=== PATIENT | male | born 1950 | race Caucasian/White ===

== ENCOUNTER → 2019-07-13 | Outpatient (CLI) | payer OTHER ==
[2019-07-13 16:46] LABS: Hematocrit 35.3 % (37.0-53.0); Hemoglobin 11.7 g/dL (13.5-17.5)
[2019-07-13 17:01] LABS: Albumin, Blood 3.4 g/dL (3.4-5.0); Anion Gap 8 mmol/L (6-16); Blood Urea Nitrogen 60 mg/dL (8-24); Bun/Creatinine Ratio 23.1 (12.0-20.0); CO2, Blood 28 mmol/L (21-32); Chloride, Blood 104 mmol/L (98-108); Glomerular Filtration Rate 24 (60-); Glucose, Blood 109 mg/dL (70-99); Phosphorus, Blood 3.8 mg/dL (2.5-4.9); Potassium, Blood 4.4 mmol/L (3.5-5.5); Sodium, Blood 140 mmol/L (136-145)
== END ==
LOC: LAB EV 16:34
PROVIDERS: Internal Medicine
DX: E11.22 Type 2 diabetes mellitus with diabetic chronic kidney disease (principal); N18.4 Chronic kidney disease, stage 4 (severe)
CPT/HCPCS: 36415; 80069; 83036; 83970; 85014; 85018

== ENCOUNTER → 2019-09-30 | Outpatient (CLI) | payer OTHER | END | disposition home or self-care (01) | LOC: LAB EV 13:45 → LAB SHORT 13:45 | DX: N39.0 Urinary tract infection, site not specified (principal) | CPT/HCPCS: 87086 ==

== ENCOUNTER → 2019-11-08 | Outpatient (CLI) | payer OTHER | LOC: PLD 15:35 → LAB SHORT 15:35 | DX: L70.0 Acne vulgaris (principal) | CPT/HCPCS: 88305 ==

== ENCOUNTER → 2019-11-22 | Outpatient (CLI) | payer OTHER | LOC: LAB EV 12:15 → LAB SHORT 12:15 | DX: R30.0 Dysuria (principal) | CPT/HCPCS: 87086 ==

== ENCOUNTER → 2020-06-21 | Outpatient (CLI) | payer OTHER ==
[2020-06-21 13:50] LABS: Hematocrit 35.4 % (37.0-53.0); Hemoglobin 11.7 g/dL (13.5-17.5)
[2020-06-21 14:04] LABS: Albumin, Blood 3.4 g/dL (3.4-5.0); Anion Gap 7 mmol/L (6-16); Blood Urea Nitrogen 36 mg/dL (8-24); Bun/Creatinine Ratio 18.1 (12.0-20.0); CO2, Blood 29 mmol/L (21-32); Calcium, Blood 9.6 mg/dL (8.5-10.1); Chloride, Blood 105 mmol/L (98-108); Creatinine, Blood 1.99 mg/dL (0.60-1.20); Glomerular Filtration Rate 33 (60-); Glucose, Blood 124 mg/dL (70-99); Phosphorus, Blood 3.6 mg/dL (2.5-4.9); Potassium, Blood 4.4 mmol/L (3.5-5.5); Sodium, Blood 141 mmol/L (136-145)
[2020-06-21 14:13] LABS: Bun/Creatinine Ratio 18.9 (12.0-20.0); Calcium, Blood 9.5 mg/dL (8.5-10.1); Creatinine, Blood 1.96 mg/dL (0.60-1.20); Potassium, Blood 4.4 mmol/L (3.5-5.5); Thyroid Stimulating Hormone 1.444 uIU/mL (0.360-4.800)
== END | disposition home or self-care (01) ==
LOC: LAB SHORT 13:40 → LAB EV 13:40
PROVIDERS: Internal Medicine; Physician Assistant
DX: I12.9 Hypertensive chronic kidney disease with stage 1 through stage 4 chronic kidney disease, or unspecified chronic kidney disease (principal); N18.4 Chronic kidney disease, stage 4 (severe); E11.22 Type 2 diabetes mellitus with diabetic chronic kidney disease; E11.649 Type 2 diabetes mellitus with hypoglycemia without coma; R00.1 Bradycardia, unspecified; E03.9 Hypothyroidism, unspecified
CPT/HCPCS: 36415; 80069; 83036; 84443; 85014; 85018

== ENCOUNTER 2020-08-14 07:40 | Day surgery (SDC) | payer OTHER ==
[~2020-08-14] VITALS: Ht 167.6 cm; Wt 117.0 kg
[~2020-08-14 07:40] MED LIST: ALDACTONE25 MG PO; ATOR80 PO; BASAGLAR K100 UNIT/1 SC; CALC.25 PO; CLOP75 PO; COLCRYS0.6 M1 PO; EUTHYROX125 MCG PO; FEBU40TA PO; FURO40 PO; GABA300 PO; LOSA25 PO; METO50ER PO; NOVOLOG FL100 UNIT/3 SC; PACERONE100 M1 PO; TUMS500 MG PO
--- NOTE | 2020-08-14 13:09 | NUR ---
PT VERBALIZED UNDERSTANDING OF WRITTEN AND VERBAL D/C INST. -BLEEDING OR SWELLING L UPPER CHEST AREA. IV REMOVED. PT TAKEN OUT OF THE HRT CENTER VIA W/C.
== END 2020-08-14 14:21 | disposition home or self-care (01) ==
LOC: MHTC 07:40
DX: Z45.02 Encounter for adjustment and management of automatic implantable cardiac defibrillator (principal); I13.0 Hypertensive heart and chronic kidney disease with heart failure and stage 1 through stage 4 chronic kidney disease, or unspecified chronic kidney disease; E11.22 Type 2 diabetes mellitus with diabetic chronic kidney disease; I50.9 Heart failure, unspecified; E78.00 Pure hypercholesterolemia, unspecified; E11.51 Type 2 diabetes mellitus with diabetic peripheral angiopathy without gangrene; I25.5 Ischemic cardiomyopathy; Z79.899 Other long term (current) drug therapy; Z79.02 Long term (current) use of antithrombotics/antiplatelets; Z79.4 Long term (current) use of insulin; N18.4 Chronic kidney disease, stage 4 (severe); D63.1 Anemia in chronic kidney disease; I77.819 Aortic ectasia, unspecified site; E78.5 Hyperlipidemia, unspecified; M10.9 Gout, unspecified; I08.1 Rheumatic disorders of both mitral and tricuspid valves; Z88.8 Allergy status to other drugs, medicaments and biological substances
CPT/HCPCS: 33263; 99152; 99153; C1781; J0690; J1644; J2250; J3010; J7030; J7040